=== PATIENT | female | born 1945 | race Caucasian/White ===

== ENCOUNTER → 2017-03-04 | Outpatient (CLI) | payer MEDICARE, OTHER ==
[~2017-03-04] MED LIST: ALEN35TA20; CLOB30CR10; EST45C
--- NOTE | 2017-03-05 08:03 | Diagnostic Imaging Report ---
Bilateral screening mammogram 2D views with tomosynthesis The current study was also evaluated with a Computer Aided Detection (CAD) system. Indication: Screening. No current complaints stated on the questionnaire. COMPARISON: 03/03/2016 Findings: The breasts are composed of dense parenchyma which may decrease mammographic sensitivity. Post lumpectomy changes in the upper outer aspect of the right breast are again noted without significant change. There are scattered benign-appearing calcifications Allowing for technique and positional differences, no suspicious change is seen. IMPRESSION: Dense breasts with no definite change. ACR BI-RADS Category 2: Benign findings. Result letter will be mailed to the patient. Note: At least 10% of breast cancer is not imaged by mammography. Dictated by: Dictated on workstation # [id number]
== END ==
LOC: RAD 07:23
PROVIDERS: ATTEND Obstetrics & Gynecology
DX: Z12.31 Encounter for screening mammogram for malignant neoplasm of breast (principal)
CPT/HCPCS: 77067

== ENCOUNTER → 2018-03-11 | Outpatient (CLI) | payer MEDICARE, OTHER ==
--- NOTE | 2018-03-11 20:54 | Diagnostic Imaging Report ---
INDICATION: Routine screening. COMPARISON: Prior mammograms from 03/04/2017 and 03/03/2016. EXAMINATION: 2D and 3D bilateral screening mammography was performed with CAD. The current study was also evaluated with a Computer Aided Detection (CAD) system. FINDINGS: Scattered fibroglandular densities are identified, bilaterally. Post lumpectomy changes in the upper outer right breast are again noted. Nodular densities in the medial and lateral left breast appear stable and most consistent with benign etiology. No new mass or malignant appearing microcalcifications are seen. Benign calcifications are noted. Axillae are unremarkable. IMPRESSION: Stable bilateral mammograms. No mammographic features suspicious for malignancy are identified. ACR BI-RADS Category 2: Benign findings. Result letter will be mailed to the patient. Note: At least 10% of breast cancer is not imaged by mammography. Dictated on workstation # [id number]
== END ==
LOC: RAD 07:17
PROVIDERS: ATTEND Obstetrics & Gynecology
DX: Z12.31 Encounter for screening mammogram for malignant neoplasm of breast (principal)
CPT/HCPCS: 77067

== ENCOUNTER → 2018-10-11 | Outpatient (CLI) | payer MEDICARE ==
--- NOTE | 2018-10-11 15:01 | Diagnostic Imaging Report ---
INDICATION: Postmenopausal female. COMPARISON: 02/22/2014. FINDINGS: AP Spine L2-L4: [BMD (g/cm2): 0.940] [T-Score: -2.2] [Z-Score: -0.2] [BMD Previous: 0.986] [BMD % Change: -4.7] LT Hip Neck: [BMD (g/cm2): 0.748] [T-Score: -2.1] [Z-Score: -0.1] LT Hip Total: [BMD (g/cm2):0.810] [T-Score:-1.6] [Z-Score: 0.2] [BMD Previous: 0.881] [BMD % Change: -10.3] RT Hip Neck: [BMD (g/cm2):0.784] [T-Score:-1.8] [Z-Score:0.1] RT Hip Total: [BMD (g/cm2):0.837] [T-score:-1.4] [Z-Score:0.4] [BMD Previous:0.895] [BMD % Change:-6.5] *Indicates significant change from prior examination based on 95% confidence level. World Health Organization criteria for BMD interpretation classify patients as Normal (T-score at or above -1.0), Osteopenic (T-score between -1.0 and -2.5) or Osteoporotic (T-score at or below -2.5). LIMITATIONS AND MODIFICATION: None. FRACTURE RISK (FRAX SCORE): The ten year probability of (%): Major Osteoporotic Fracture: [12.2] Hip Fracture: [2.8] IMPRESSION: 1. Osteopenia (Low bone mass). 2. Interval decrease in bone density does not appear to reach statistical significance. 3. See below National Osteoporosis Foundation guidelines on when to potentially initiate pharmacologic therapy. Based on the National Osteoporosis Foundation Guidelines, pharmacologic treatment should be initiated in any of the following, unless clinical conditions suggest otherwise: * Any patient with prior fragility fracture of the hip or vertebrae. A spine fracture indicates 5X risk for subsequent spine fracture and 2X risk for subsequent hip fracture. * Osteoporosis (T-score <-2.5). * Postmenopausal women and men age 50 and older with low bone mass/osteopenia (T-score between -1.0 and -2.5) by DXA and 10-year major osteoporotic fracture greater than 20% or a 10-year probability of hip fracture greater than 3%. These fracture risks are supplied above in the FRAX score, if applicable. * Clinician judgement and/or patient preferences may indicate treatment for people with 10-year fracture probabilities above or below these levels. Dictated by: Dictated on workstation # [id number]
== END ==
LOC: RAD 09:55
PROVIDERS: ATTEND Obstetrics & Gynecology
DX: M85.88 Other specified disorders of bone density and structure, other site (principal); M81.0 Age-related osteoporosis without current pathological fracture
CPT/HCPCS: 77080

== ENCOUNTER 2019-01-17 11:40 | Emergency (ER) | payer MEDICARE ==
[~2019-01-17] VITALS: Ht 157.5 cm; Wt 56.4 kg
[2019-01-17] MEDS ORDERED: fentaNYL INJECTION 100 MCG/2 ML AMP ONE (11:50)
[2019-01-17 12:00] LABS: HEMOGLOBIN 14.5 G/DL (11.5-16.0); MEAN PLATELET VOLUME 8.6 FL (7.4-10.4); RED CELL DISTRIBUTION WIDTH 13.5 % (10.0-14.5); WHITE BLOOD COUNT 9.1 10^3/uL (4.3-11.0)
--- NOTE | 2019-01-17 12:16 | Diagnostic Imaging Report ---
INDICATION: Trauma, post fall off ladder TECHNIQUE: AP pelvis 12 00 p.m. CORRELATION STUDY: None FINDINGS: The pelvis demonstrates no evidence for acute fracture. The pectineal lines and obturator rings are maintained. Pubic symphysis and SI joints are unremarkable. Hips unremarkable. Moderate amount of overlying bowel gas and stool does obscure detail. IMPRESSION: Negative for acute traumatic abnormality of the pelvis. Dictated by: Dictated on workstation # [id number]
--- NOTE | 2019-01-17 12:18 | Diagnostic Imaging Report ---
INDICATION: Trauma, fall off ladder. TECHNIQUE: Single view chest 11:58 AM. CORRELATION STUDY: None FINDINGS: The heart size and pulmonary vascularity are within normal limits. Slight prominent appearance at the region of the ascending aorta can be associated with aortic valvular disease and/or systemic arterial hypertension. The lungs are clear with no consolidating infiltrate. There is no significant effusion or pneumothorax. No acute displaced fracture. IMPRESSION: 1. Negative for acute traumatic abnormality of the chest. Dictated by: Dictated on workstation # [id number]
[2019-01-17 12:29] LABS: ALANINE AMINOTRANSFERASE 18 U/L (0-55); ALBUMIN 4.6 GM/DL (3.2-4.5); ALKALINE PHOSPHATASE 75 U/L (40-136); BILIRUBIN,DIRECT 0.3 MG/DL (0.0-0.3); BILIRUBIN,INDIRECT 0.4 MG/DL; BILIRUBIN,TOTAL 0.7 MG/DL (0.1-1.0); BUN/CREATININE RATIO 23; CALCIUM 9.6 MG/DL (8.5-10.1); CARBON DIOXIDE 23 MMOL/L (21-32); CHLORIDE 104 MMOL/L (98-107); CREATININE SERUM 0.77 MG/DL (0.60-1.30); GFR ESTIMATED > 60; GLUCOSE 108 MG/DL (70-105); POTASSIUM 3.6 MMOL/L (3.6-5.0); SODIUM 140 MMOL/L (135-145); TOTAL PROTEIN 7.1 GM/DL (6.4-8.2)
[2019-01-17] MEDS ORDERED: fentaNYL INJECTION 100 MCG/2 ML AMP IVP STA ×3 (12:35→14:37)
[2019-01-17] MEDS ORDERED: NS IV 1000 ML 1,000 ML IV ONE (12:35)
--- NOTE | 2019-01-17 12:38 | Diagnostic Imaging Report ---
PROCEDURE: CT thoracic and lumbar spine without contrast. TECHNIQUE: Multiple contiguous axial images were obtained through the thoracic and lumbar spine without the use of intravenous contrast. Sagittal and coronal reformations were then performed. INDICATION: 9-foot fall with back pain. COMPARISON: Comparison limited to CT abdomen and pelvis of 04/23/2009 which includes coronal reconstructions. FINDINGS: There is a mild two-column burst-type fracture pattern involving the L2 vertebral body. It showed stature loss, most notably at its whtyaf-js-izwlonhl one-thirds of about 15 to 20%. It showed slight 1 to 2 mm retropulsion of its superior endplate cortex. The pedicles and pars were intact. There is mild paravertebral paraspinal hematoma. The remaining lumbar vertebral bodies, neural arches, and transverse processes appeared intact. Thoracic vertebral body heights are maintained. The thoracic endplates are intact, their posterior elements are intact. The partially visualized posterior rib segments appeared nonacute. Partially visualized lungs and pleura are nonacute. The partially visualized abdominopelvic contents revealed no intra or retroperitoneal fluid or hemorrhage. The incompletely visualized sacrum and SI joints were nonacute. Note is made of a presumed embolic coil mass along the inferior right renal hilum. The left kidney shows either parapelvic cysts formation or mild hydronephrosis. IMPRESSION: 1. Two-column burst fracture pattern at L2 with only slight retropulsion and no substantial stenosis of the spinal canal, neuroforamen, or lateral recesses. The remaining thoracolumbar vertebral bodies and posterior elements were all intact. There was no additional fracture identified. 2. Postinterventional changes to the right kidney. Fluid spaces in the left renal sinus fat and pelvis may be parapelvic cysts or mild hydronephrosis. Results discussed with the ER nurse. Dictated by: Dictated on workstation # [id number]
--- NOTE | 2019-01-17 13:02 | Diagnostic Imaging Report ---
INDICATION: Fall off ladder. Three views of the right ankle were obtained. FINDINGS: There is an oblique fracture through the medial malleolus which extends in the superior aspect of the medial ankle mortise. There is also a fracture through the distal fibula. There is widening of the lateral ankle mortise. Posterior malleolus appears to be intact. There appears to be a nondisplaced comminuted fracture of the calcaneus. IMPRESSION: Bimalleolar fracture as described with widening of the lateral ankle mortise. Comminuted fracture of the calcaneus. Dictated by: Dictated on workstation # [id number]
--- NOTE | 2019-01-17 13:11 | ED Fall/Injury ---
General Chief Complaint: Trauma POV Arrival Activation Stated Complaint: FALL Nursing Triage Note: Assisted pt out of POV via ED w.c by ED staff to room #7. Pt reports @ approx 1130 on this day, she was on a ladder cleaning her windows when she fell backwards landing on her Rt ankle. Pt reports to have fallen approx 8ft onto grass. Pt denies loc, hitting head, or neck discomfort. Pt actively bleeding from Rt medial ankle. Pt noted to be tender upon palpation by provider to L1 et S1 spine. Pt denies numbness or tingling to extremities. Pulses to bilat lower extremities active and equal. A&OX4. Source: patient Exam Limitations: no limitations History of Present Illness Date Seen by Provider: Jan 17, 2019 Time Seen by Provider: 11:42 Initial Comments Here by POV with report of right ankle injury after falling 8 foot off a ladder while cleaning a window. She was at the 8 foot step when she fell. She landed on her right foot and then her bottom. Denies hitting her head. Denies loss of consciousness or other injury. Complains of severe right ankle pain as well as p ain to the low back. Does have laceration/opening to the medial aspect of the right ankle that is bleeding. Patient reports that she bleeds easy and has precursor to von Willebrand but not full disease. She states that she was bleeds a lot. Also reports osteopenia. Occurred: just prior to arrival (approximately 30 minutes ago) Severity: moderate Injuries/Pain Location: back, lower extremity Context: lost balance Loss of Consciousness: no loss of consciousness Modifying Factors: Improves With Immobilization; Worse With Movement Associated Symptoms (Fall): No Abdominal Pain, No Chest Pain, No Confusion, No Headache, No Nausea/Vomiting, No Neck Pain Allergies and Home Medications Allergies Coded Allergies: No Known Drug Allergies (Verified , 04/17/15) Patient Home Medication List Home Medication List Reviewed: Yes Review of Systems Review of Systems Constitutional: see HPI; No chills, No fever Eyes: No Symptoms Reported Ears, Nose, Mouth, Throat: no symptoms reported Respiratory: No short of breath, No wheezing Cardiovascular: No chest pain, No palpitations Gastrointestinal: No abdominal pain, No nausea, No vomiting Genitourinary: No dysuria, No pain : No Musculoskeletal: back pain, joint pain, muscle pain; No neck pain Skin: No change in color; lesions Psychiatric/Neurological: Denies Weakness All Other Systems Reviewed Negative Unless Noted: No Past Pkdmlxn-Zecfrg-Tcxmop Hx Past Med/Social Hx: Reviewed Nursing Past Med/Soc Hx Patient Social History Alcohol Use: Denies Use Recreational Drug Use: No Smoking Status: Never a Smoker 2nd Hand Smoke Exposure: No Recent Foreign Travel: No Contact w/Someone Who Travel: No Recent Infectious Disease Expo: No Physical Abuse: No Sexual Abuse: No Immunizations Up To Date Date of Pneumonia Vaccine: Dec 27, 2013 Date of Influenza Vaccine: Dec 26, 2014 Past Medical History Surgeries: Yes (MULTIPLE BREAST BIOPSIES, BUNIONECTOMY, AV MALFORMATION KIDNEY) Respiratory: No Cardiac: No Neurological: No Reproductive Disorders: No Sexually Transmitted Disease: No Gastrointestinal: No Musculoskeletal: Yes (OSTEOPENIA) Endocrine: No Blood Disorders: Yes (SLOW TO CLOT) Family Medical History Reviewed Nursing Family Hx No Pertinent Family Hx Physical Exam Vital Signs Vital Signs - First Documented 01/17/19 11:44 Temp 35.9 Pulse 86 Resp 18 B/P (MAP) 124/76 (92) Pulse Ox 99 O2 Delivery Room Air Capillary Refill : Less Than 3 Seconds Height, Weight, BMI Height: '" Weight: lbs. oz. kg; 22.00 BMI Method: General Appearance: WD/WN, no apparent distress HEENT: PERRL/EOMI, pharynx normal Neck: non-tender, full range of motion, supple, normal inspection Cardiovascular: regular rate, rhythm, no murmur Respiratory: lungs clear, normal breath sounds Gastrointestinal: non tender, soft Back: normal inspection, no vertebral tenderness Extremities: other (tender with deformity to the right ankle. 6-8 cm open laceration to the right ankle medial aspect horizontally oriented just above the shoe line. Distal dorsalis pedis pulse equal and strong to the left foot. Cap refill and intact. Bleeding mostly controlled with bulky dressing and Onesimo wrap.) Neurologic/Psychiatric: alert, oriented x 3 Skin: warm/dry, other (laceration as above) Cameron Coma Score Best Eye Response: (4) Open Spontaneously Best Verbal Response: (5) Oriented Best Motor Response: (6) Obeys Commands Procedures/Interventions Splinting and Joint Reduction : Pre-Proc Neuro Vasc Exam: normal Post-Proc Neuro Vasc Exam: normal Hand-Made Type: fiberglass Splint Application: Short Leg Progress/Results/Core Measures Results/Orders Lab Results Laboratory Tests Test 01/17/19 11:40 01/17/19 14:25 Range/Units White Blood Count 9.1 4.3-11.0 10^3/uL Red Blood Count 4.54 4.35-5.85 10^6/uL Hemoglobin 14.5 11.5-16.0 G/DL Hematocrit 43 35-52 % Mean Corpuscular Volume 94 80-99 FL Mean Corpuscular Hemoglobin 32 25-34 PG Mean Corpuscular Hemoglobin Concent 34 32-36 G/DL Red Cell Distribution Width 13.5 10.0-14.5 % Platelet Count 322 130-400 10^3/uL Mean Platelet Volume 8.6 7.4-10.4 FL Sodium Level 140 135-145 MMOL/L Potassium Level 3.6 3.6-5.0 MMOL/L Chloride Level 104 98-107 MMOL/L Carbon Dioxide Level 23 21-32 MMOL/L Anion Gap 13 5-14 MMOL/L Blood Urea Nitrogen 18 7-18 MG/DL Creatinine 0.77 0.60-1.30 MG/DL Estimat Glomerular Filtration Rate > 60 BUN/Creatinine Ratio 23 Glucose Level 108 H 70-105 MG/DL Calcium Level 9.6 8.5-10.1 MG/DL Total Bilirubin 0.7 0.1-1.0 MG/DL Direct Bilirubin 0.3 0.0-0.3 MG/DL Indirect Bilirubin 0.4 MG/DL Aspartate Amino Transf (AST/SGOT) 25 5-34 U/L Alanine Aminotransferase (ALT/SGPT) 18 0-55 U/L Alkaline Phosphatase 75 40-136 U/L Total Protein 7.1 6.4-8.2 GM/DL Albumin 4.6 H 3.2-4.5 GM/DL Serum Test, Qualitative NEGATIVE NEGATIVE Serum Alcohol < 10 <10 MG/DL My Orders Orders - ANISA MEIER MD Ct Thoracic/Lumbar Spine Wo (01/17/19 11:50) Cbc No Diff (01/17/19 11:50) Basic Metabolic Panel (01/17/19 11:50) Liver Panel (01/17/19 11:50) Alcohol (01/17/19 11:50) Hcg,Qualitative Serum (01/17/19 11:50) Ua Culture If Indicated (01/17/19 11:50) Type And Screen (01/17/19 11:50) Chest 1 View, Ap/Pa Only (01/17/19 11:50) Pelvis (01/17/19 11:50) Ed Iv/Invasive Line Start (01/17/19 11:50) Ankle, Right, 3 Views (01/17/19 11:50) Fentanyl Injection (Sublimaze Injection (01/17/19 11:50) Ed Iv/Invasive Line Start (01/17/19 12:35) Ns Iv 1000 Ml (Sodium Chloride 0.9%) (01/17/19 12:35) Fentanyl Injection (Sublimaze Injection (01/17/19 12:35) Fentanyl Injection (Sublimaze Injection (01/17/19 12:35) Ampicillin/Sulbactam Injection (Unasyn 3 (01/17/19 14:15) Fentanyl Injection (Sublimaze Injection (01/17/19 14:37) Medications Given in ED Current Medications Medications Dose Ordered Sig/Renetta Route Start Time Stop Time Status Last Admin Dose Admin Sodium Chloride 1,000 ml @ 0 mls/hr Q0M ONCE IV 01/17/19 12:35 01/17/19 12:37 DC 01/17/19 11:52 0 MLS/HR Vital Signs/I&O 01/17/19 11:44 Temp 35.9 Pulse 86 Resp 18 B/P (MAP) 124/76 (92) Pulse Ox 99 O2 Delivery Room Air Blood Pressure Mean: 92 POS Progress Progress Note : Progress Note Seen and evaluated on arrival. Assisted to the bed. Patient noted to be bleeding from the right ankle and bulky dressing and Onesimo wrap applied. ATLS exam performed. No findings of the head or neck with full range of motion. X-rays of the chest, pelvis and right ankle ordered. CT of the thoracolumbar spine ordered due to pain in the low back and history of osteopenia. Fentanyl 50 g IV and stable trauma initiated. Distal pulses verified after placement of Onesimo wrap and noted to be the same as previous and maintains good strong pulses. Monitor patient. Repeat fentanyl 50 g IV and normal saline initiated. I did discuss the case with Dr. Ledesma, on-call orthopedist at 1237. He is concerned given the description of the fracture and will look at x-rays. 1249: I did discuss the case with Dr. Ledesma and he states that this is definitely outside of the scope of capabilities here and is recommending transfer. Concerns about local capabilities and we discussed options. [facility] in [place] may have trauma traumatologist and we will call therefore evaluation to determine if transfer is appropriate. 1315: I have discussed the case with Dr. Young, orthopedist communications coordinator their and described the injury in detail. He has similar concerns as Dr. Ledesma and they do not manage calcaneus fractures at that hospital. Transfer there would require transfer to another facility so we will go ahead and forego transfer there and call for evaluation of this for possible transfer. 1320: I have initiated transfer call with [facility] and am awaiting callback of the trauma surgeon communications coordinator, Dr. Gonzales. I have updated the family of concerns and the need for transfer and they are in full agreement. Pain is currently controlled. She still has some oozing from the wound through the dressing and Onesimo wrap. Distal pulses still intact. Vital signs remain appropriate and consistent with those on arrival. 1334: I have discussed the case with Dr. Gonzales, trauma surgeon on-call. He accepts patient for direct admission to the surgical ICU. Pending bed assignment. 1342: EMS notified of pending transfer. All films have been clouded to and we will also send back up disc. 1400: Dressing taken down to the lower 4x4 gauzes but not removed off the wound as bleeding seems to have stopped. Redressed with bulky 4 x 4's and covered with Onesimo wrap. Distal pulses intact afterwards. Posterior splint applied and secured with Onesimo wrap. Distal pulses remain intact. Pending bed assignment. Patient family are in agreement with plan. 1412: Unasyn IV ordered per recommendation of accepting trauma surgeon and 3 g IV were ordered. Bed assignment received. EMS activated for transfer. Diagnostic Imaging Diagonstic Imaging: Xray Plain Films/CT/US/NM/MRI: chest Comments [facility], [facility]. POS [place], [place] POS NAME: YOVANI COATES MED REC#: [id number] PT STATUS: REG ER : 1945 PHYSICIAN: ANISA MEIER MD ADMIT DATE: 01/17/19/ER Draft POSDate of Exam:01/17/19 CHEST 1 VIEW, AP/PA ONLY INDICATION: Trauma, fall off ladder. TECHNIQUE: Single view chest 11:58 AM. CORRELATION STUDY: None FINDINGS: The heart size and pulmonary vascularity are within normal limits. Slight prominent appearance at the region of the ascending aorta can be associated with aortic valvular disease and/or systemic arterial hypertension. The lungs are clear with no consolidating infiltrate. There is no significant effusion or pneumothorax. No acute displaced fracture. IMPRESSION: 1. Negative for acute traumatic abnormality of the chest. Dictated on workstation # [id number] Dict: 01/17/19 1216 Trans: 01/17/198 DO [id number] Interpreted by: KAROL NOWAK DO Electronically signed by: Diagonstic Imaging: Xray Plain Films/CT/US/NM/MRI: pelvis [facility]. POS [place], [place] POS NAME: YOVANI COATES MED REC#: [id number] PT STATUS: REG ER : 1945 PHYSICIAN: ANISA MEIER MD ADMIT DATE: 01/17/19/ER Draft POSDate of Exam:01/17/19 PELVIS INDICATION: Trauma, post fall off ladder TECHNIQUE: AP pelvis 12 00 p.m. CORRELATION STUDY: None FINDINGS: The pelvis demonstrates no evidence for acute fracture. The pectineal lines and obturator rings are maintained. Pubic symphysis and SI joints are unremarkable. Hips unremarkable. Moderate amount of overlying bowel gas and stool does obscure detail. IMPRESSION: Negative for acute traumatic abnormality of the pelvis. Dictated on workstation # [id number] Dict: 01/17/19 1215 Trans: 01/17/196 DO [id number] Interpreted by: KAROL NOWAK DO Electronically signed by: Diagonstic Imaging: Xray Plain Films/CT/US/NM/MRI: ankle Comments NAME: YOVANI COATES R MED REC#: [id number] PT STATUS: REG ER : 1945 PHYSICIAN: ANISA MEIER MD ADMIT DATE: 01/17/19/ER Signed POSDate of Exam: 01/17/19 ANKLE, RIGHT, 3 VIEWS INDICATION: Fall off ladder. Three views of the right ankle were obtained. FINDINGS: There is an oblique fracture through the medial malleolus which extends in the superior aspect of the medial ankle mortise. There is also a fracture through the distal fibula. There is widening of the lateral ankle mortise. Posterior malleolus appears to be intact. There appears to be a nondisplaced comminuted fracture of the calcaneus. IMPRESSION: Bimalleolar fracture as described with widening of the lateral ankle mortise. Comminuted fracture of the calcaneus. Dictated by: Dictated on workstation # [id number] Dict: 01/17/19 1259 Trans: 01/17/19 1306 Interpreted by: ROCAEL CONNER MD Electronically signed by: ROCAEL CONNER MD 01/17/19 1306 Diagonstic Imaging: CT Plain Films/CT/US/NM/MRI: other Comments [facility]. POS [place] POS NAME: YOVANI COATES [facility] REC#: [id number] PT STATUS: REG ER : 1945 PHYSICIAN: ANISA MEIER MD ADMIT DATE: 01/17/19/ER Draft POSDate of Exam:01/17/19 CT THORACIC/LUMBAR SPINE WO PROCEDURE: CT thoracic and lumbar spine without contrast. TECHNIQUE: Multiple contiguous axial images were obtained through the thoracic and lumbar spine without the use of intravenous contrast. Sagittal and coronal reformations were then performed. INDICATION: 9-foot fall with back pain. COMPARISON: Comparison limited to CT abdomen and pelvis of 04/23/2009 which includes coronal reconstructions. FINDINGS: There is a mild two-column burst-type fracture pattern involving the L2 vertebral body. It showed stature loss, most notably at its ppqumy-am-stesmztd one-thirds of about 15 to 20%. It showed slight 1 to 2 mm retropulsion of its superior endplate cortex. The pedicles and pars were intact. There is mild paravertebral paraspinal hematoma. The remaining lumbar vertebral bodies, neural arches, and transverse processes appeared intact. Thoracic vertebral body heights are maintained. The thoracic endplates are intact, their posterior elements are intact. The partially visualized posterior rib segments appeared nonacute. Partially visualized lungs and pleura are nonacute. The partially visualized abdominopelvic contents revealed no intra or retroperitoneal fluid or hemorrhage. The incompletely visualized sacrum and SI joints were nonacute. Note is made of a presumed embolic coil mass along the inferior right renal hilum. The left kidney shows either parapelvic cysts formation or mild hydronephrosis. IMPRESSION: 1. Two-column burst fracture pattern at L2 with only slight retropulsion and no substantial stenosis of the spinal canal, neuroforamen, or lateral recesses. The remaining thoracolumbar vertebral bodies and posterior elements were all intact. There was no additional fracture identified. 2. Postinterventional changes to the right kidney. Fluid spaces in the left renal sinus fat and pelvis may be parapelvic cysts or mild hydronephrosis. Results discussed with the ER nurse. Dictated on workstation # [id number] Dict: 01/17/19 1223 Trans: 01/17/19 1238 AS6 [id number] Interpreted by: DOUG NUNES Electronically signed by: Departure Impression Primary Impression: Fracture of tibia with fibula, right, open Additional Impressions: Fracture of calcaneus, right, open Qualified Codes: S92.011B - Displaced fracture of body of right calcaneus, initial encounter for open fracture Compression fracture of L2 Qualified Codes: S32.020A - Wedge compression fracture of second lumbar vertebra, initial encounter for closed fracture Disposition: 02 XFER SHT-TRM HOSP Condition: Stable Transfer Transfer Reason: Exceeds level of care Time Spoke to Accepting Phy: 13:34 Transfer Facility: [facility], Dr. Gonzales accepting Method of Transfer: EMS Departure-Patient Inst. Referrals: MARTINEZ ROQUE DO (PCP/Family) Primary Care Physician ANISA MEIER MD Jan 17, 2019 13:11 POS
[2019-01-17] MEDS ORDERED: AMPICILLIN/SULBACTAM INJECTION 3 GM in NS (IVPB) 100 ML IV ONE (14:15)
--- NOTE | 2019-01-17 14:17 | NUR ---
CC NOTIFIED OF PT TRANS
[2019-01-17 14:33] LABS: BILIRUBIN,URINE NEGATIVE (NEGATIVE); CLARITY,URINE CLEAR; COLOR,URINE YELLOW; GLUCOSE, URINE (UA) NEGATIVE (NEGATIVE); KETONES,URINE 3+ (NEGATIVE); LEUKOCYTE ESTERASE ,URINE 1+ (NEGATIVE); NITRITE,URINE NEGATIVE (NEGATIVE); PH,URINE 6 (5-9); PROTEIN,URINE NEGATIVE (NEGATIVE)
[2019-01-17 14:41] LABS: BACTERIA,URINE NEGATIVE /HPF; WBC,URINE RARE /HPF
[2019-01-17] MEDS ORDERED: TETANUS,DIPTH,PERTUSS P/F (BOOSTRIX) 0.5 ML VIAL IM ONE (14:45)
[2019-01-17 15:08] VITALS: BP 143/88
== END 2019-01-17 15:09 | disposition short-term general hospital (02) ==
LOC: EDUNIT# 11:40 → ER 11:42
DX: S82.831B Other fracture of upper and lower end of right fibula, initial encounter for open fracture type I or II (principal); S82.201B Unspecified fracture of shaft of right tibia, initial encounter for open fracture type I or II; S92.011 Displaced fracture of body of right calcaneus; S32.020A Wedge compression fracture of second lumbar vertebra, initial encounter for closed fracture; R40.2142 Coma scale, eyes open, spontaneous, at arrival to emergency department; R40.2252 Coma scale, best verbal response, oriented, at arrival to emergency department; R40.2362 Coma scale, best motor response, obeys commands, at arrival to emergency department; Z23 Encounter for immunization; W11.XXXA Fall on and from ladder, initial encounter
CPT/HCPCS: 36415; 71045; 72128; 72131; 72170; 73610; 80048; 80076; 80320; 81000; 84703; 85027; 86850; 86900; 86901; 90715; 99291; 99292

== ENCOUNTER → 2019-08-22 | Outpatient (CLI) | payer MEDICARE ==
--- NOTE | 2019-08-22 13:56 | Diagnostic Imaging Report ---
INDICATION: Routine screening. COMPARISON: 03/11/2018 and 03/04/2017. TECHNIQUE: 2D and 3D bilateral screening mammography was performed with CAD. FINDINGS: Both breasts are heterogeneously dense, limiting the sensitivity of mammography. Post lumpectomy changes in the outer right breast are again noted. There are scattered benign calcifications in both breasts. The overall parenchymal pattern is stable. No spiculated mass or malignant appearing microcalcifications are seen. The axillae are unremarkable. IMPRESSION: No mammographic features suspicious for malignancy are identified. ACR BI-RADS Category 2: Benign findings. Result letter will be mailed to the patient. Note: At least 10% of breast cancer is not imaged by mammography. Dictated by: Dictated on workstation # [id number]
== END ==
LOC: RAD 07:38
PROVIDERS: ATTEND Obstetrics & Gynecology
DX: Z12.31 Encounter for screening mammogram for malignant neoplasm of breast (principal)
CPT/HCPCS: 77063; 77067

== ENCOUNTER → 2020-08-23 | Outpatient (CLI) | payer MEDICARE, OTHER ==
--- NOTE | 2020-08-23 09:37 | Diagnostic Imaging Report ---
Digital mammogram bilateral screening This study was compared to the prior exams of 08/22/2019 and 03/03/2018. At this time there are no current complaints. By history, the patient has had prior lumpectomy on the right in 2001. The scar formation in the lumpectomy site seen previously is again evident and does not seem to have changed significantly. There is no sign of recurrent malignancy in the lumpectomy site. There are scattered fibroglandular densities in both breasts which could obscure a lesion. When compared to the previous study, there does not appear to have been any significant change. There is no primary or secondary sign of malignancy noted. IMPRESSION: 1. The post lumpectomy changes involving the right breast seen previously appear stable. There is no evidence for recurrent malignancy in this region. 2. There is no sign of malignancy involving either breast otherwise. ACR BI-RADS Category 1: Negative. Result letter will be mailed to the patient. Note: At least 10% of breast cancer is not imaged by mammography. Dictated by: Dictated on workstation # [id number]
== END ==
LOC: RAD 09:00
PROVIDERS: ATTEND Obstetrics & Gynecology
DX: Z12.31 Encounter for screening mammogram for malignant neoplasm of breast (principal); Z90.11 Acquired absence of right breast and nipple
CPT/HCPCS: 77063; 77067

== ENCOUNTER → 2020-12-25 | Outpatient (CLI) | payer MEDICARE, OTHER ==
--- NOTE | 2020-12-25 14:05 | Diagnostic Imaging Report ---
PROCEDURE: US Thyroid. TECHNIQUE: Multiple real-time grayscale images were obtained of the thyroid in various projections. INDICATION: Hypothyroidism. Right lobe thyroid measures 4.6 x 1.1 x 1.7 cm, The left lobe measures 4.2 x 1.2 x 1.3 cm. Isthmus is 2 mm in thickness. The right lobe of the thyroid contains 2 nodules. The largest is more inferiorly located and hypoechoic measuring 1.3 x 1.0 x 1.1 cm. No internal calcifications are seen. A smaller nodule measures approximately 0.9 x 0.5 cm. A nodule in the left lobe superiorly measures approximately 1.1 x 0.5 x 0.7 cm. No internal calcifications are identified. IMPRESSION: Bilateral thyroid nodules, the largest on the right inferiorly. Follow-up ultrasound in 6 months is recommended to confirm stability. Dictated by: Dictated on workstation # [id number]
== END ==
LOC: RAD 11:00
PROVIDERS: ATTEND Family Medicine
DX: E03.9 Hypothyroidism, unspecified (principal); E04.1 Nontoxic single thyroid nodule
CPT/HCPCS: 76536

== ENCOUNTER → 2021-06-20 | Outpatient (CLI) | payer MEDICARE, OTHER ==
--- NOTE | 2021-06-20 09:34 | Diagnostic Imaging Report ---
PROCEDURE: US Thyroid. TECHNIQUE: Multiple real-time grayscale images were obtained of the thyroid in various projections. INDICATION: Thyroid nodule COMPARISON: 12/25/2020 Right and left lobes of thyroid gland measure 4.2 x 0.8 x 2.1 cm and 3.6 x 0.9 x 1.3 cm, respectively. Bilateral thyroid gland nodules are again demonstrated. The largest is in the lower pole of the right lobe measuring 1.4 x 1.0 x 1.1 cm. This is heterogeneous in appearance without significant change. Nodule in the upper pole of the left lobe measures 0.9 x 0.5 x 0.8 cm. This is also heterogeneous without significant change. No new mass is identified. Blood flow is unremarkable. IMPRESSION: Stable bilateral solid thyroid nodules. Additional followup study could be performed in 12 months to document ongoing stability. Dictated by: Dictated on workstation # [id number]
== END ==
LOC: RAD 08:00
PROVIDERS: ATTEND Family Medicine
DX: E04.2 Nontoxic multinodular goiter (principal)
CPT/HCPCS: 76536

== ENCOUNTER → 2021-08-26 | Outpatient (CLI) | payer MEDICARE, OTHER ==
--- NOTE | 2021-08-26 13:10 | Diagnostic Imaging Report ---
INDICATION: Routine screening. COMPARISON: 08/23/2020 and 08/22/2019. TECHNIQUE: 2D and 3D bilateral screening mammography was performed with CAD. FINDINGS: Scattered fibroglandular densities are identified bilaterally. Post-lumpectomy changes in the upper outer right breast are again noted. The lumpectomy site appears stable. Both breasts appear stable. There are scattered benign calcifications present. No dominant mass or malignant appearing microcalcifications are seen. The slightly nodular density in the central left breast at the nipple line on the CC view appears stable. The axillae are unremarkable. IMPRESSION: No mammographic features suspicious for malignancy are identified. ACR BI-RADS Category 2: Benign findings. Result letter will be mailed to the patient. Note: At least 10% of breast cancer is not imaged by mammography. Dictated by: Dictated on workstation # [id number]
== END ==
LOC: RAD 07:30
PROVIDERS: ATTEND Obstetrics & Gynecology
DX: Z12.31 Encounter for screening mammogram for malignant neoplasm of breast (principal)
CPT/HCPCS: 77063; 77067

== ENCOUNTER → 2023-01-07 | Outpatient (CLI) | payer MEDICARE, OTHER ==
--- NOTE | 2023-01-07 11:58 | Diagnostic Imaging Report ---
Indication: Routine screening. Comparison is made with prior mammograms 08/26/2021 and 08/23/2020. 2-D and 3-D bilateral screening mammography was performed with CAD. Scattered fibroglandular densities are identified bilaterally. Post lumpectomy changes in the outer right breast appear stable. The left breast appears stable. No mass or malignant-appearing microcalcifications are seen. There are benign calcifications bilaterally. Axillae are unremarkable. IMPRESSION: BI-RADS Category 2 No mammographic features suspicious for malignancy are identified. ACR BI-RADS Category 2: Benign findings. Result letter will be mailed to the patient. Note: At least 10% of breast cancer is not imaged by mammography. Dictated by: Dictated on workstation # [id number]
== END ==
LOC: RAD 10:08
PROVIDERS: ATTEND Obstetrics & Gynecology
DX: Z12.31 Encounter for screening mammogram for malignant neoplasm of breast (principal)
CPT/HCPCS: 77063; 77067